=== PATIENT | male | born 1975 | race American Indian/Alaskan Native ===

== ENCOUNTER 2016-10-06 17:42 | Emergency (ER) | payer OTHER ==
[2016-10-06 17:59] VITALS: RESP 18; TEMP 98.2
--- NOTE | 2016-10-06 18:17 | ED PDOC ---
Arrival/HPI - General Chief Complaint: Syncope Time Seen by Provider: 10/06/16 17:51 Historian: Patient, Other (friend) - History of Present Illness Narrative History of Present Illness (Text): 10/06/16 18:16 A 41 year old male, who denies any past medical history, presents to the emergency department after episode of syncope complaining of lightheadedness. Patient notes he was talking with his friend outside at a cook out and fell to the floor. Patient also notes he drank 2 beers. Patient denies hitting his head. Reports never happened before. Patient remembers someone waking him up. Friend reports seeing him after episode, sitting on a chair. Patient denies any vomiting, diarrhea, fever, neck pain or any other complaints at this time. Symptom Onset: Sudden Symptom Course: Improving Activities at Onset: Rest Associated Symptoms (Text): none Past Medical History - Provider Review Nursing Documentation Reviewed: Yes - Reproductive Currently : No Currently Lactating: No - Psychiatric Hx Substance Use: No - Surgical History Hx Orthopedic Surgery: Yes Family/Social History - Physician Review Nursing Documentation Reviewed: Yes Family/Social History: No Known Family HX Smoking Status: Never Smoked Hx Alcohol Use: No Hx Substance Use: No Allergies/Home Meds Allergies/Adverse Reactions: Allergies No Known Allergies Allergy (Verified 10/06/16 17:44) Home Medications: Home Meds Medication Instructions Recorded Confirmed No Known Home Med 10/06/16 10/06/16 Review of Systems - Physician Review All systems were reviewed & negative as marked: Yes - Review of Systems Constitutional: Other (lightheaded). absent: Fevers Cardiovascular: Syncope Gastrointestinal: absent: Diarrhea, Vomiting Musculoskeletal: absent: Neck Pain Physical Exam Vital Signs Reviewed: Yes Vital Signs Temp Pulse Resp BP Pulse Ox 10/06/16 17:58 98.2 F 94 H 18 95/68 L 98 Temperature: Afebrile Blood Pressure: Hypotensive Pulse: Regular Respiratory Rate: Normal Appearance: Positive for: Well-Appearing, Non-Toxic, Comfortable Pain Distress: None Mental Status: Positive for: Alert and Oriented X 3 Finger Stick Blood Glucose: 114 - Systems Exam Head: Present: Atraumatic, Normocephalic Pupils: Present: PERRL Extroacular Muscles: Present: EOMI Conjunctiva: Present: Normal Mouth: Present: Moist Mucous Membranes Neck: Present: Normal Range of Motion Respiratory/Chest: Present: Clear to Auscultation, Good Air Exchange. No: Respiratory Distress, Accessory Muscle Use Cardiovascular: Present: Regular Rate and Rhythm, Normal S1, S2. No: Murmurs Abdomen: Present: Normal Bowel Sounds. No: Tenderness, Distention, Peritoneal Signs Back: Present: Normal Inspection Upper Extremity: Present: Normal Inspection. No: Cyanosis, Edema Lower Extremity: Present: Normal Inspection. No: Edema Neurological: Present: GCS=15, CN II-XII Intact, Speech Normal Skin: Present: Warm, Dry, Normal Color. No: Rashes Psychiatric: Present: Alert, Oriented x 3, Normal Insight, Normal Concentration Medical Decision Making ED Course and Treatment: 10/06/16 18:14 EKG: Ordered, reviewed, and independently interpreted the EKG. Rate : 82 BPM Rhythm : NSR Interpretation : Normal axis, Normal intervals, No acute ischemia Comparison : No previous EKG for comparison. chest xray: No acute findings, interpreted by me. - Lab Interpretations Lab Results: 10/06/16 18:40 10/06/16 18:40 Lab Results 10/06/16 18:40: Sodium 139, Potassium 3.7, Chloride 101, Carbon Dioxide 28, Anion Gap 14, BUN 21, Creatinine 1.4, Est GFR ( Amer) > 60, Est GFR (Non- Af Amer) 56, Random Glucose 111 H, Calcium 9.3, Total Bilirubin 0.4, AST 28, ALT 46, Alkaline Phosphatase 46, Troponin I < 0.01, Total Protein 7.8, Albumin 4.4, Globulin 3.4, Albumin/Globulin Ratio 1.3 10/06/16 18:40: WBC 6.4, RBC 4.70, Hgb 14.6, Hct 42.0, MCV 89.4, MCH 31.1, MCHC 34.8, RDW 12.7, Plt Count 169, MPV 10.3, Gran % 61.5, Lymph % (Auto) 31.5, [place] % (Auto) 5.0, Eos % (Auto) 1.7, Baso % (Auto) 0.3, Gran # 3.95, Lymph # 2.0, [place] # 0.3, Eos # 0.1, Baso # 0.02 I have reviewed the lab results: Yes - RAD Interpretation Radiology Orders: 10/06/16 18:23 CHEST TWO VIEWS (PA/LAT) [RAD] Stat - EKG Interpretation Interpreted by ED Physician: Yes Type: 12 lead EKG - Medication Orders Current Medication Orders: Discontinued Medications Sodium Chloride (Sodium Chloride 0.9%) 1,000 mls @ 999 mls/hr IV .Q1H1M STA Stop: 10/06/16 19:24 Last Admin: 10/06/16 18:42 Dose: 999 mls/hr - Scribe Statement The provider has reviewed the documentation as recorded by the Miller Packer Provider Scribe Attestation: All medical record entries made by the Tawanaibfinn were at my direction and personally dictated by me. I have reviewed the chart and agree that the record accurately reflects my personal performance of the history, physical exam, medical decision making, and the department course for this patient. I have also personally directed, reviewed, and agree with the discharge instructions and disposition. Disposition/Present on Arrival - Present on Arrival History of DVT/PE: No History of Uncontrolled Diabetes: No Urinary Catheter: No History of Decub. Ulcer: No History Surgical Site Infection Following: None - Disposition Diagnosis: Syncope Disposition: HOME/ ROUTINE Disposition Time: 20:03 Patient Problems: Current Active Problems Problem Status Onset Syncope Acute Condition: STABLE Discharge Instructions (ExitCare): Syncope (ED) Additional Instructions: Please follow up with a primary doctor. Return to the ER for any worsening symptoms or for any other concerns. Referrals: [facility] [place] - Follow up with primary
[2016-10-06] MEDS ORDERED: Sodium Chloride 0.9% 1,000 ML IV STA (18:24)
[2016-10-06 18:49] LABS: ADD MANUAL DIFF? NO
[2016-10-06 19:01] LABS: ALB/GLOB RATIO 1.3 (1.1-1.8); ALKALINE PHOSPHATASE 46 U/L (38-133); ALT/SGPT 46 U/L (7-56); AST/SGOT 28 U/L (15-59); BILIRUBIN,TOTAL 0.4 mg/dL (0.2-1.3); BLOOD UREA NITROGEN 21 mg/dL (7-21); CALCIUM 9.3 mg/dL (8.4-10.5); CARBON DIOXIDE 28 mmol/L (21-33); CHLORIDE 101 mmol/L (98-107); GFR AFRICAN-AMERICAN > 60; GLUCOSE,RANDOM 111 mg/dL (70-110); POTASSIUM 3.7 mmol/L (3.6-5.0); SODIUM 139 mmol/L (132-148); TOTAL PROTEIN 7.8 g/dL (5.8-8.3)
[2016-10-06 19:10] LABS: BASO # 0.02 K/mm3 (0.0-2.0); BASO % 0.3 % (0.0-3.0); EOS # 0.1 (0.0-0.7); EOS % 1.7 % (1.5-5.0); GRAN # 3.95 (1.4-6.5); GRAN % 61.5 % (50.0-68.0); LYMPH % 31.5 % (22.0-35.0); MEAN CELL VOLUME 89.4 fL (80.0-105.0); MEAN CORPUSCULAR HEMOGLOBIN 31.1 pg (25.0-35.0); MEAN CORPUSCULAR HGB CONC 34.8 g/dl (31.0-37.0); MEAN PLATELET VOLUME 10.3 fl (7.0-11.0); MONO # 0.3 (0.1-0.6); PLATELET COUNT 169 10^3/uL (120.0-450.0); RED CELL DISTRIBUTION WIDTH 12.7 % (11.5-14.5); WHITE BLOOD COUNT 6.4 10^3/ul (4.5-11.0)
[2016-10-06 19:22] LABS: TROPONIN I < 0.01 ng/mL
[2016-10-06 20:37] VITALS: BP 113/70; PULSE 86; O2SAT 100
--- NOTE | 2016-10-07 09:56 | RAD ---
HISTORY: Syncope COMPARISON: No prior. TECHNIQUE: Chest PA and lateral FINDINGS: LUNGS: The lungs are well inflated and clear. PLEURA: No significant pleural effusion identified. No pneumothorax apparent. CARDIOVASCULAR: Normal. OSSEOUS STRUCTURES: No significant abnormalities. VISUALIZED UPPER ABDOMEN: Normal. OTHER FINDINGS: None. IMPRESSION: No active pulmonary disease.
--- NOTE | 2016-10-08 00:14 | CARD ---
APPROVED REPORT EKG Measurement Heart [id number] <Conclusion> Normal sinus rhythm Early repolarization Normal ECG
== END 2016-10-06 20:39 | disposition home or self-care (01) ==
LOC: EDSEX → ED 17:42 → MERGE 17:42 → ED 20:39
DX: R55 Syncope and collapse (principal)
CPT/HCPCS: 71020; 80053; 84484; 85025; 96360; 99285; J7040